=== PATIENT | male | born 1955 | race Caucasian/White ===

== ENCOUNTER → 2019-03-14 | Outpatient (CLI) | payer BC, SELFPAY ==
[2019-03-14 13:30] LABS: PSA,Total - Annual Screen 1.85 ng/mL (0.00-4.00)
== END | disposition home or self-care (01) ==
LOC: MFPLAB 11:53
PROVIDERS: Family Provider Family Medicine; PCP Family Medicine; Referring Provider Family Medicine; Visit Provider Family Medicine
DX: Z12.5 Encounter for screening for malignant neoplasm of prostate (principal)
CPT/HCPCS: 36415; 84153; G0103

== ENCOUNTER 2020-10-16 07:19 | Emergency (ER) | payer BC, SELFPAY ==
[2020-10-16 07:20] VITALS: BP 185/102; PULSE 75; RESP 16; TEMP 36.2; O2SAT 97; BMI 31.9
--- NOTE | 2020-10-16 07:59 | CT_ITS ---
STUDY: CT BRAIN WITHOUT CONTRAST REASON FOR EXAM: Male, 65 years old. Fell yesterday, no LOC, abrasion to back of head. RADIATION DOSAGE (If Supplied By Facility): CTDIvol = ( 44.99 ) mGy, DLP = ( 745.49 ) mGycm TECHNIQUE: Transaxial CT imaging of the brain was performed without administration of intravenous contrast material. Individualized dose optimization techniques were used for this CT. COMPARISON: No relevant priors. FINDINGS: Small laceration and scalp hematoma overlying the posterior left parietal bone. Normal calvarium. Normal size ventricles and extra-axial spaces for the patient''s age. Normal white matter tracts of the cerebral hemispheres. Normal basal ganglia and thalami. Normal brainstem. Normal cerebellum. There is no intracranial hemorrhage. There are no findings of an acute ischemic infarction. There is a 1.2 cm polyp or retention cyst along the anterior medial portion of the right maxillary sinus. Partial opacification of the ethmoid sinuses. CT/Brain/Head without Contrast IMPRESSION: No acute abnormality is seen. Sinusitis. Electronically Signed: Mynor Marsh MD at 8:30 EST , Service support ,
--- NOTE | 2020-10-16 10:25 | ED.DCSUM_ITS ---
History of Present Illness Chief Complaint: Fall Informant: Patient Onset: Yesterday Current Severity: Mild Maximum Severity: Mild Narrative: Patient present secondary to head injury. He states he fell yesterday after ge tting off work and injured the back of his head. No loss of consciousness. Patient states he cannot see the wound and is not sure if it needs repair. He is also not sure of his last tetanus update. Patient does have mild headache. No vision changes, nausea, vomiting. Patient is not on anticoagulants. Past Medical History - Allergies and Home Meds Allergies/Adverse Reactions: Allergies No Known Allergies Allergy (Verified 10/16/20 07:20) Primary Care Physician: Francisco Crawley MD [Primary Care Provider] - 7 Days for suture removal Prior records reviewed: Yes Past Medical History: - - Noncontributory Review of Systems General: Denies: Chills, Fever Eyes: Denies: Visual changes - bilaterally ENT: Denies: Bilateral ear pain Cardiovascular: Denies: Chest pain Respiratory: Denies: Dyspnea, Cough Gastrointestinal: Denies: Abdominal pain, Vomiting, Diarrhea Genitourinary: Denies: Dysuria Musculoskeletal: Denies: Swelling, Extremity Pain Skin: Reports: Wounds Neurological: Denies: Headache, Weakness, Parasthesia Hematologic: Denies: Easy bruising, Easy bleeding Allergy: Denies: Uticaria Physical Exam Vital Signs/Narrative: Vital Signs Temp Pulse Resp BP Pulse Ox 10/16/20 07:20 97.2 F L 75 16 185/102 H 97 Inital Vital Signs reviewed: Yes General: Well nourished, Well developed Head: Normocephalic, Trauma - 2 cm curved abrasion with dried blood to the left posterior parietal scalp. Eyes: Perrl, EOMI ENT: Moist mucous membranes Neck: - - No C-spine tenderness. Cardiovascular: Regular rate, Regular rhythm Respiratory: No distress, CTA bilaterally Abdomen: Soft, Nontender Extremities: Nontender Skin: - - Scalp wound as above Neurological: Alert, Oriented x3, Normal Strength, Normal Sensation Psychological: Normal affect Diagnostic/Tx/Re-eval Impressions Brain CT 10/16/20 07:59 IMPRESSION: No acute abnormality is seen. Sinusitis. Electronically Signed: Mynor Marsh MD at 8:30 EST , Service support , 10/16/20 07:59 CT Head [Brain/Head without Contrast] [CT] Stat - Medical Decision Making Tetanus update is provided. CT scan of the head is obtained with no intracranial injuries, soft tissue swelling noted. After cleansing wound was noted that repair was needed. Please see procedure note. Procedures - Lacerations No standard instances Length: 0.79 in Depth: Sub Q Laceration repair: Lidocaine with epi, Local Number of Sutures/Jeison: 2 Comment: After wound was cleansed at bedside it was noted to be full-thickness. 3 cc of 2% lidocaine with epinephrine were infused. Wound is cleansed and irrigated. 3 jeison were placed across the wound. ED Disposition - Plan for ED Patient: Disposition: Home or Assisted Living Diagnosis: Scalp laceration Instructions: ED Laceration: All Closures Referrals: Francisco Crawley MD [Primary Care Provider] - 7 Days for suture removal
[2020-10-16] MEDS: Diphth,Pertuss(Acell),Tet Vac 0.5 ML Vial IM (10:27)
[2020-10-16] MEDS: Lidocaine 2% /Epi 1:100 (50ml) 50 ML Vial INFILT (11:04)
[2020-10-16 11:05] VITALS: PULSE 74; RESP 22; O2SAT 97
== END 2020-10-16 11:34 | disposition home or self-care (01) ==
PROVIDERS: Emergency Provider Emergency Medicine; PCP Family Medicine
DX: S01.01XA Laceration without foreign body of scalp, initial encounter (principal); W19.XXXA Unspecified fall, initial encounter; Y93.9 Activity, unspecified; Y92.9 Unspecified place or not applicable
CPT/HCPCS: 12001; 70450; 90471; 90715; 99283

== ENCOUNTER 2021-03-21 07:34 | Day surgery (SDC) | payer BC, SELFPAY ==
--- NOTE | 2021-03-18 14:10 | EKG12_ITS ---
Test Reason : PREOP Blood Pressure : / mmHG Vent. Rate : 050 BPM Atrial Rate : 050 BPM P-R Int : 164 ms QRS Dur : 082 ms QT Int : 478 ms P-R-T Axes : 017 -09 -08 degrees QTc Int : 435 ms Sinus bradycardia with sinus arrhythmia Nonspecific T wave abnormality Abnormal ECG Confirmed by MARVIN HELM, SATNAM ([id number]), graphic editor LORENZO TRINIDAD ([id number]) on 03/19/2021 12:45:50 PM Referred By: Titus Agarwal Confirmed By:SATNAM WONG MD
[2021-03-18 14:47] LABS: Hematocrit 39.5 % (40-54); Mean Corp Hgb Conc 35.4 g/dL (32-36); Mean Corpuscular Hgb 31.5 pg (27.0-32.0); Mean Platelet Vol. 10.6 fl (6.2-12.0); Platelet Count 201 K/mm3 (150-450); RBC Distribution Width CV 12.9 % (11.6-14.6); RBC Distribution Width SD 42.1 fl (35.1-43.9); Red Blood Count 4.44 M/mm3 (4.6-6.2); White Blood Count 7.1 K/mm3 (4.4-11.0)
[2021-03-21] VITALS (9 sets, daily range): BP systolic 160–195; BP diastolic 82–95; PULSE 47–60; RESP 16–18; TEMP 36.1–36.7; O2SAT 50–99; BMI 29.6
[2021-03-21] MEDS: Lactated Ringers 1,000 ML 100 ML IV (08:45)
--- NOTE | 2021-03-21 09:04 | PCM.HP.BLA ---
History and Physical Date of Admission: 03/21/21 HISTORY AND PHYSICAL ? Adam Ochoa Jr. 1955 ? ? REFERRING PHYSICIAN: Mitul Sparks MD ? CHIEF COMPLAINT: Consult (Left Inguinal Hernia) ? HPI: Adam is a 65 year old male with a complaint of a bulge and discomfort in his left inguinal region. The patient notes discomfort in this area with lifting and straining. The symptoms have increased, over the past few months. ? The patient notes no symptoms of bowel obstruction and denies nausea or vomiting. The patient was seen by his primary care physician who felt the patient has a hernia. Adam was referred for evaluation and treatment. ? The patient is being seen by me today at the request of Dr. Sparks for my opinion and advice regarding Left inguinal hernia (primary encounter diagnosis). ? ? PAST MEDICAL HISTORY PAST MEDICAL HISTORY Diagnosis Date ? Appendicitis, acute 07/07/2010 ? Rotator cuff syndrome of shoulder and allied disorders ? ? ? PAST SURGICAL HISTORY PAST SURGICAL HISTORY Procedure Laterality Date ? APPENDECTOMY,RUPT APPENDX+ABSCESS ? 07/07/2010 ? TONSILLECTOMY HX ? CURRENT MEDICATIONS Current Outpatient Medications Medication Sig ? meloxicam (MOBIC) 15 mg tablet Take 15 mg by mouth once daily. ? No current facility-administered medications for this visit. ? ? ALLERGIES: Patient has no known allergies. ? PERSONAL HISTORY: SOCIAL HISTORY Social History ? Tobacco Use ? Smoking status: Former Smoker ? Smokeless tobacco: Never Used ? Tobacco comment: QUIT 3 WEEKS AGO Substance Use Topics ? Alcohol use: Not on file ? Drug use: Not on file ? FAMILY HISTORY: FAMILY HISTORY FAMILY HISTORY Problem Relation Age of Onset ? Cancer Father ? ? Diabetes Maternal Grandmother ? ? Heart Maternal Grandfather ? ? Stroke Maternal Grandfather ? ? ? REVIEW OF SYMPTOMS: The review of systems data was entered by the nurse and reviewed by me ? Nursing Notes: Delilah Henderson LPN 02/24/2021 4:09 PM Signed REVIEW OF SYSTEMS: General: The patient NOTES fatigue, denies weight loss, denies weight gain, denies feeling hot, and denies feelings of cold. Eyes: The patient denies glaucoma, denies eye injury/surgery, wears glasses or contacts. Ear/Nose/Throat: The patient denies allergies, denies hayfever, denies ear infections, and denies bloody noses. Cardiovascular: The patient denies chest pain, denies heart disease, denies high blood pressure,denies cardiac stent, denies prior heart attack, denies irregular heart beat, denies high cholesterol, denies poor circulation, denies heart failure, other cardiac issues, denies claudication, denies cold feet, denies peripheral arterial stent. Respiratory: The patient denies tuberculosis, denies pneumonia, denies frequent cough, denies pulmonary embolism, denies shortness of breath, and denies coughing up blood. Gastrointestinal: The patient denies difficulty swallowing, denies acid reflux, denies ulcers, denies vomiting, denies jaundice/hepatitis, denies gallbladder problems, denies black or tarry stools, NOTES hemorrhoids, denies bleeding from rectum, denies diverticulitis, denies constipation, denies diarrhea, denies loss of stool control, and NOTES hernias. Kidney/Bladder: The patient denies kidney stones, denies urine infections, and denies bloody urine. Skin: The patient denies a history of skin cancer, denies bleeding/changing moles, and denies a history of skin rash. Neurologic: The patient denies a history of epilepsy/convulsions, denies headaches, denies head/spinal injuries, and denies stroke/TIA. Psychiatric: The patient denies psychiatric medications, NOTES depression, and denies voices, denies substance abuse. Endocrine: The patient denies thyroid disorders, denies diabetes, and denies hormonal problems. Hematologic: The patient denies a history of bruising, denies bleeding, and denies anemia, denies blood clots. Infections: The patient NOTES a history of measles and mumps, denies rheumatic fever, and denies sexually transmitted diseases. Musculoskeletal: The patient NOTES back pain/injury, NOTES back problems, denies sciatica, NOTES knee/foot trouble, denies arthritis, or denies gout. ? ? When was patient's last Mammogram screening? N/A ? Last Colonoscopy: None ? Delilah Henderson LPN ? PHYSICAL EXAMINATION: ? General: The patient is 65 year old male, well nourished, well hydrated in no acute distress. The patient is oriented to time, place, and person. ? VITALS: Blood pressure 132/78, pulse 89, temperature 36.7 ?C (98 ?F), height 172.7 cm (5' 8), weight 88 kg (194 lb), SpO2 96 %. Body mass index is 29.5 kg/m?. ? HEENT: Normal cephalic, ataumatic, pupils are equally round, sclera are anicteric, mucous membranes are moist, oropharynx is clear. Neck has no masses, asymmetry or lymphadenopathy. Thyroid is unremarkable. ? Respiratory: Clear to auscultation and percussion. Normal respiratory excursion and pattern. ? Cardiac: Examination is regular rate and rhythm. ? Abdominal exam: Soft, nontender, with no palpable masses. No hepatosplenomegaly. A moderate reducible left inguinal hernia, no right inguinal or umbilical hernias are noted ? Rectal exam: exam deferred ? Extremities: no clubbing, cyanosis or edema. No adenopathy. ? Other: ? ? LABORATORY VALUES: As Noted ? RADIOLOGIC STUDIES: As Noted ? Assessment IMPRESSION: left inguinal hernia ? PLAN: My plan is to perform a robotic assisted laparoscopic left inguinal hernia repair with mesh. The planned surgical procedure was discussed extensively with the patient. The risks, benefits, anticipated outcomes and possible complications were mentioned. Adam ramirezands that all hernia repair surgery has a chance of recurrence and/or chronic post operative pain. My staff has also explained the procedure in understandable terms and the patient was given the option to take printed material concerning the planned procedure. The patient had the opportunity to ask questions concerning the planned procedure. The patient freely consents to the planned procedure. ? A letter was sent to Francisco Crawley DO indicating the above finding for this patient. ? Diagnoses: (K40.90) Left inguinal hernia (primary encounter diagnosis) ? Anticipated CPT Code: laparoscopic left inguinal hernia repair with mesh - 27902-122 ? Anticipated Anesthetic: General ? Patient weight: Blood pressure 132/78, pulse 89, temperature 36.7 ?C (98 ?F), height 172.7 cm (5' 8), weight 88 kg (194 lb), SpO2 96 %. BMI: Body mass index is 29.5 kg/m?. ? Planned antibiotic: Ancef 2gm IVPB complex commercial litigation paralegal to OR ? SCDs needed - Yes Return to Clinic: The patient is instructed to follow-up with me 1 week post operatively. ? COVID (Procedure Consent) Procedure Criteria ? Procedure Criteria: Yes Elective The surgeon/proceduralist and patient have discussed in detail the risk of exposure to and/or potential harm posed by the COVID-19 virus with having a surgery/procedure at this time versus the risk of? delaying the surgery/procedure. It is not possible to know either the risk of delaying the surgery or procedure or chance of getting an infection with perfect accuracy, but a joint decision was made between the patient and the surgeon/proceduralist ?to proceed at this time with the scheduled surgery/procedure as indicated on the consent form. ? ? Titus Agarwal III, MD I have re-examined the patient. There are no clinical changes since date of exam.
[2021-03-21] MEDS: Cefazolin 2 GM in 0.9% Normal Saline 100 ML IV (09:39)
[2021-03-21] MEDS: Bupivacaine Mpf 0.5% 30 ML VIAL (10:13)
--- NOTE | 2021-03-21 11:16 | PCM.OPRPT ---
Problems Associated Problem List Diagnoses (1) Left inguinal hernia: Report of Operation Date of Procedure: 03/21/21 Pre-Operative Diagnosis: Left inguinal hernia Post-Operative Diagnosis: The same Surgery/Procedure Performed:: Robotic assisted laparoscopic left inguinal hernia repair with mesh Surgeon: Titus Agarwal brick machine operator: Marc Luke Type of Anesthesia: General Anesthesiologist: Mitul Lamar Estimated Blood Loss (mL): < 25 cc Description of Procedure: Patient was brought into the operating room. Placed in supine position. Under excellent general endotracheal ovation a Mccormick catheter was placed abdomen was sterilely prepped and draped in usual fashion. Local was injected supraumbilically dissection was carried down. Fascia was grasped with a [employer] varies needle was placed inside the abdomen, the abdomen and insufflated the abdomen to 15 torr. I placed a #8 trocar through this defect it was flank by 2 other #8 trochars. Patient was placed in the headdown position robot was brought in. Robot was successfully docked I placed a prograsp in my left hand scissors in my right hand I scored the peritoneum on the left side dissecting down to we came to the pubic tubercle and dissected laterally immediately coming in direct contact with a direct inguinal hernia which I brought back into the operative field I dissected further laterally no indirect hernia was identified. Once I had the cord and vessel structures dissected free I placed a 10 x 15 cm progrip mesh into the wound laid it over the defect it covered it quite nicely. I then reperitonealized the area using a 3 OV lock suture covering the mesh completely. Right side look good without signs of herniation. Trochars were removed. Wounds were brought together with deep dermal stitches of 3-0 Vicryl and then interrupted 4-0 Monocryl. Steri-Strips were applied sterile dressings were applied and the patient tolerated the procedure well Grafts/Implants Used: Continue progrip mesh reference number [id number], lot number [id number] Admit VTE Documentation VTE Present on Admission: No VTE Mechan Device Prophylaxis: SCD's VTE Pharm Prophylaxis ordered?: No Reason prophylaxis not ordered:: Treatment Not Indicated
--- NOTE | 2021-03-21 11:45 | DCINST_ITS ---
Discharge Instructions Procedure Hernia Diet Discharge Diet: Light diet - advance as tolerated Activity Discharge Activity: Return to Normal Activity, May Drive (when you are no longer taking narcotic pain medications.) and May Shower (with the bandage in place 1-2 days after surgery.) Lifting Restrictions: 20 pounds for 8 weeks. Additional Activity Instructions:: Climbing stairs is fine, walking is e ncouraged. Sitting in bed may be uncomfortable. Sitting up using your lateral muscles (sitting up sideways) is usually more comfortable. Do not drive, work heavy equipment of sign legal documents for 24 hours. If your hernia repair was an ingunial repair, you may have scrotal swelling, an ice pack and/or athletic support can provide more comfort. Pain medications may cause nausea, you should typically eat light foods as you take your pain medications. Pain medications may also cause constipation. If you have difficulty with this, discuss with your doctor. Dressing / Incision Call your doctor if your incision/area has: Continuous Slow Oozing, Sudden Increased Bleeding, Increased Pain/ Swelling, Increased Redness and Foul Smelling Discharge Call your doctor if you observe: Fever of 101 or Higher Suture Line Care: Avoid Pulling/Pushing and Avoid Pinching/Bending Additional Dressing/Incision Instructions:: Leave the operative bandage on for 2-3 days. When you remove the bandage, leave the steri-strips on place until your follow up appointment or they fall off. Follow Up Care Please Follow Up With: Ashley Degroot PA-C When: Call office to schedule an appointment to be seen in 7 days. Test Results: Test results from this visit will be discussed in further detail at your follow-up appointment, if applicable. Discharge Plan Admission Attending Provider: Titus Agarwal Primary Care Provider: Francisco Crawley Discharge Orders/Prescriptions Prescriptions: New oxycodone-acetaminophen [Percocet] 5-325 mg tablet 1 tab PO Q6H PRN (Reason: pain) 5 Days Qty: 20 RF: 0 Other Ambulatory Orders: 12 Lead EKG (Routine) Timeframe: [id number] Location: None Selected Ordered By: Dr. Bj Brown Referrals / Follow Up: Francisco Crawley MD [Primary Care Provider] - Disposition Disposition (needs filled in before D/C Order can be placed): Home, Self Care
[2021-03-21] MEDS: Acetaminophen 325 MG Tablet PO (13:06)
[2021-03-21] MEDS: oxyCODONE 5 MG Tablet PO (13:06)
== END 2021-03-21 13:49 | disposition home or self-care (01) ==
LOC: SDC 07:40 → AC 07:41
PROVIDERS: Anesthesiology; PCP Family Medicine; Referring Provider Surgery; Visit Provider Surgery
PROC: 0YQ64ZZ Repair Left Inguinal Region, Percutaneous Endoscopic Approach (ICD-10-PCS; CPT 49650; principal; 2021-03-21 09:30)
DX: K40.90 Unilateral inguinal hernia, without obstruction or gangrene, not specified as recurrent (principal); Z87.891 Personal history of nicotine dependence
CPT/HCPCS: 00840; 49650; S2900; 36415; 85027; 93005; J7120; J2405

== ENCOUNTER → 2022-02-20 | Outpatient (CLI) | payer MEDICARE, OTHER, SELFPAY ==
--- NOTE | 2022-02-20 11:16 | RAD_ITS ---
STUDY: X-RAY - RIGHT FOOT CLINICAL: Male, 66 years old. Cellulitis. TECHNIQUE: 3 view(s) of the foot. COMPARISON: None. FINDINGS: Osteopenia. 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 Inferior calcaneal spur. Mild arthrosis of the tarsometatarsal articulations. Mild arthrosis of the MTP and IP joints with hammertoe deformities. The soft tissue structures are unremarkable. RAD/Foot min 3 Views IMPRESSION: Osteopenia with diffuse osteoarthritic changes. Inferior calcaneal spur. No acute abnormality, evidence of erosive changes or fusion. Electronically Signed: Mervin Townsend MD at 13:18 EDT ,
== END | disposition home or self-care (01) ==
LOC: MTRAD 11:14
PROVIDERS: PCP Family Medicine; Referring Provider Family Medicine; Visit Provider Family Medicine
DX: L03.90 Cellulitis, unspecified (principal)
CPT/HCPCS: 73630

== ENCOUNTER 2025-04-01 11:13 | Emergency (ER) | payer MEDICARE, OTHER, SELFPAY ==
[2025-04-01 11:15] VITALS: BP 155/89; PULSE 67; RESP 18; TEMP 37; O2SAT 99; BMI 35.4
--- NOTE | 2025-04-01 11:27 | EDS_ITS ---
<Statement entered by Dereje Núñez DO - 04/01/25 16:06> Patient was seen and examined with physician mortgage loan assistant Nancy All components of the history and physical confirmed and agreed. History of present illness and physical exam: Patient is a 61-year-old male with past medical history of alcohol use, anxiety, depression who presented to the emergency department with a chief complaint of fall. He states that around the 10 PM last night he was carrying a chair outside slipped on wet grass on an incline in his yard. He states that he is not sure exactly how he landed but notes that when he got up this morning he had left ankle pain and he was complaining of right shoulder pain as well. He states that he had been doing a significant yard work recently as well and st ates that he could have hurt his shoulder from doing this. He states he did not hit his head did not pass out he remembers entire event and denies any blood thinning medications. Review of systems: Agreed above Physical exam: Agree with above MDM Patient is a 69-year-old male who presented to the emergency department with a chief complaint of left ankle pain and right shoulder pain after a fall. On the differential diagnosis includes but not limited to proximal humerus fracture, medial malleolus fracture, lateral malleolus fracture, rotator cuff tear. Once the workup is obtained reviewed he will be reevaluated. Patient's x-ray of his ankle and shoulder reviewed by myself and by radiology showed no acute fractures or dislocations of either joint. Did discuss results with the patient he would like to go home at this point time. He is vies to ice, rotate Tylenol and ibuprofen [id number]. Patient was offered a sling for comfort and he states that he does not want this. He is advised to follow-up orthopedics in the outpatient setting and return with worsening symptoms or concerns. All question concerns answered he is discharged home in stable condition. Final impression: Right shoulder pain Left ankle pain Fall History of anxiety and depression Disposition: Patient will be discharged home in stable condition Supervising attending attestation: Dereje Núñez D.O. [facility] History of Present Illness Chief Complaint: Lower Extremity Injury Narrative Narrative: 69-year-old male presents with extremity injuries. Last night around 10 PM he was carrying a chair outside and slipped on an incline in his yard. He is not sure how he landed but he developed pain in his left ankle. He denies hitting his head or LOC. He went to bed and when he woke up this morning his left ankle was swollen but he can still ambulate. He states his right shoulder feels p ainful when ranging above 90 degrees but he is not sure if this is from the yard work yesterday or the fall. He denies weakness or numbness or tingling. He is right-hand dominant. He is not on blood thinners. PFSH PFS Medical History Abdominal muscle strain Alcohol use Anxiety Contusion of rib on right side Depression Gastric reflux Leg cramps Loose, teeth Smoker Wears glasses Home Medications ?Medication ?Instructions ?Recorded ?Last Taken ?Type ibuprofen 200 mg capsule 200 mg PO Q6H PRN 06/10/23 U nknown History Allergy/AdvReac Type Severity Reaction Status Date / Time tuna oil Allergy PT UNSURE Verified 04/01/25 11:43 OF REACTION Surgical History History of appendectomy History of tonsillectomy and adenoidectomy Social History Smoking Status: Current every day smoker tobacco type: cigarettes ROS ROS ED ROS Narrative Constitutional: Negative for fever, chills, malaise. CVS: Negative for chest pain. Respiratory: Negative for shortness of breath. Musc: Positive for right shoulder pain, left ankle pain, trauma. EXAM Physical Exam Narrative Exam Narrative: CONST: Patient sitting in no acute distress. EYES: Normal inspection. HEAD: Normocephalic atraumatic. NECK: Normal inspection. No midline spinal tenderness, no step off or crepitus. RESP: No respiratory distress, CTAB. Chest wall nontender. CVS: Regular rate and rhythm, no murmur, no gallop. ABD: Soft and nontender, no guarding or rebound, nondistended. Back: Normal inspection, no midline tenderness. SKIN: Color normal, no rash, warm, dry, intact. EXTREMITIES: Normal appearance without gross trauma or deformity. Right shoulder range of motion is limited to 90 degrees secondary to pain but there is no reproducible tenderness to palpation. Otherwise he has full range of motion of the upper extremities, no bony tenderness, 2+ radial pulses. Lower extremities look symmetric, full range of motion, left lateral ankle swelling without tenderness, no foot tenderness, 2+ DP pulses. NEURO: Alert and answering questions appropriately. PSYCH: Normal affect. Const Vital Signs: 04/01/25 11:15 Temperature 98.6 F Temperature Source Oral Pulse Rate 67 Respiratory Rate 18 Blood Pressure 155/89 H Blood Pressure Mean 111 Pulse Ox 99 Oxygen Delivery Method Room Air MDM MDM MDM Narrative Medical decision making narrative: Differential: Shoulder and ankle contusion/strain versus fracture 61-year-old male with mechanical fall last night and now has right shoulder pain and left ankle swelling without significant pain. He denies head injury or LOC. He is awake alert no distress. Vital stable. He has pain with movement of the right shoulder but no external signs of injury or deformity. He also has left lateral ankle swelling without tenderness and all extremities are neurovascularly intact. X-rays are negative. He declined a sling or ankle stirrup and is comfortable icing, elevating, taking [id number] pain meds as needed. I provided orthopedic follow-up if symptoms do not improve and he was discharged in stable condition. Radiography Diagnostic Testing: Clinical Impression(s) from Imaging Studies Ankle X-Ray 04/01/25 11:50 IMPRESSION: DEGENERATIVE OSTEOARTHROSIS. NO ACUTE FINDINGS. Reading Location: [facility] Shoulder X-Ray 04/01/25 11:50 IMPRESSION: DEGENERATIVE OSTEOARTHROSIS. NO ACUTE FINDINGS. Reading Location: [facility] ED attending interpretation of right shoulder shows no fracture or dislocation. ED attending interpretation of left ankle shows no fracture or dislocation. Discharge Plan Triage Chief Complaint: Lower Extremity Injury Other Complaint: Upper Extremity Injury ED Midlevel Provider: Nancy Lincoln ED Provider: Dereje Núñez Dx/Rx/DC Orders Clinical Impression: Fall, Acute pain of right shoulder, Left ankle sprain Instructions: Medicine for Pain, ED Ankle Sprain (Adult) Prescriptions: No Action ibuprofen 200 mg capsule 200 mg PO Q6H PRN Primary Care Provider: Francisco De La Paz Referrals: Francisco De La Paz MD [Primary Care Provider] - Jasen Parker DO [Med Staff - Active Staff] - Activity Restrictions/Additional Instructions: The x-ray showed no broken bones. Ice and 20-minute sessions throughout the day and take Tylenol or ibuprofen as needed every 6 hours. If it is not improving I recommend you follow-up with a primary care or orthopedic doctor. Print Language: Estonian Disposition Disposition: Home, Self Care
--- NOTE | 2025-04-01 11:50 | RAD_ITS ---
PROCEDURE: ANKLE MIN 3 VIEWS 04/01/2025 REASON FOR EXAM: PAIN TECHNIQUE: ANKLE MIN 3 VIEWS COMPARISON: None. FINDINGS: Bones: No acute fracture. No aggressive osseous lesions. Joints: Normal alignment. Mild degenerative changes. Soft tissues: Soft tissues are unremarkable. RAD/Ankle min 3 Views IMPRESSION: DEGENERATIVE OSTEOARTHROSIS. NO ACUTE FINDINGS. Reading Location: [id number]
--- NOTE | 2025-04-01 11:50 | RAD_ITS ---
PROCEDURE: SHOULDER MIN 2 VIEWS 04/01/2025 REASON FOR EXAM: PAIN TECHNIQUE: SHOULDER MIN 2 VIEWS COMPARISON: None. FINDINGS: Bones: No acute fracture. No aggressive osseous lesions. Joints: Normal alignment. Mild degenerative changes of the glenohumeral and acromioclavicular joints. Soft tissues: Soft tissues are unremarkable. RAD/Shoulder min 2 Views IMPRESSION: DEGENERATIVE OSTEOARTHROSIS. NO ACUTE FINDINGS. Reading Location: [id number]
--- OUTSIDE RECORDS SUMMARY | 2025-04-01 12:19 | XMS RPT_ITS | CCD ---
Author Organization [facility] Care Team Providers Care Breast Surgeon Name Role Phone Francisco Crawley DO Primary Care Provider Medications Current Medications Medication Drug Class(es) Dates Sig (Normalized) Sig (Original) acetaminophen 325 mg / oxyCODONE hydrochloride 5 mg oral tablet (1 source) Opioid Agonist Start: 03-21-2021 take 1 tablet by mouth every six hours Oxycodone-Acetami nophen (Percocet) 5-325 mg tablet Active 1 TABLET PO EVERY 6 HOURS 16 01March 21, 2021 Completed/Discontinued Medications Medication Drug Class(es) Dates Sig (Normalized) Sig (Original) meloxicam 15 mg oral tablet (1 source) Nonsteroidal Anti-inflammatory Drug Start: 02-18-2021 End: 04-08-2021 take 1 tablet by mouth once daily meloxicam (MOBIC) 15 mg tablet Take 15 mg by mouth once daily. 0 02/18/2021 04/08/2021 Discontinued Comment on above: Take 15 mg by mouth once daily. Problems Active Problems Problem Classification Problem Date Documented Da te Episodic/Chronic Abdominal hernia (1 source) Left inguinal hernia ; Translations: [Unilateral inguinal hernia, without obstruction or gangrene, not specified as recurrent] Episodic Open wounds of head; neck; and trunk (1 source) Scalp laceration; Translations: [Laceration without foreign body of scalp, initial encounter] Episodic Sprains and strains (1 source) Strain of abdominal muscle; Translations: [Strain of muscle, fascia and tendon of abdomen, initial encounter] Episodic Superficial injury; contusion (1 source) Contusion of rib; Translations: [Contusion of right front wall of thorax, initial encounter] Episodic Past or Other Problems Problem Classification Problem Date Documented Da te Episodic/Chronic Appendicitis and other appendiceal conditions (1 source) Acute appendicitis with generalized peritonitis; Translations: [Acute appendicitis with generalized peritonitis, without abscess] Onset: 06-24-2010 06-24-2010 Episodic Results Test Name Value Interpretation Reference Range Facility Foot min 3 Viewson 2 Foot min 3 Views [facility] Imaging Services [address] [place] [address] Foot min 3 Views MR#: [id number] Acct: [id number] Name: LATRICIA FAYE Jr. Rep #: [id number] : 1955 M 66 From: Mervin Townsend MD PCP: Dr. Francisco De La Paz MD Status: REG CLI Study: Foot min 3 Views Date of Exam: 02/20/22 Exam# [id number] Ordering Dr: Francisco De La Paz MD STUDY: X-RAY - RIGHT FOOT CLINICAL: Male, 66 years old. Cellulitis. TECHNIQUE: 3 view(s) of the foot. COMPARISON: None. FINDINGS: Osteopenia. 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 Inferior calcaneal spur. Mild arthrosis of the tarsometatarsal articulations. Mild arthrosis of the MTP and IP joints with hammertoe deformities. The soft tissue structures are unremarkable. RAD/Foot min 3 Views IMPRESSION: Osteopenia with diffuse osteoarthritic changes. Inferior calcaneal spur. No acute abnormality, evidence of erosive changes or fusion. Electronically Signed: Mervin Townsend MD at 13:18 EDT , CC: Dr. Francisco De La Paz MD Package Delivery Room Service Runner: Signed [facility] CNOVon 07-25-2021 CNOV Office Visit (UROLWS ) LATRICIA FAYE JR. ([id number]) 1955 M Date Time Provider Department 07/25/21 8:00 AM RAKAN ULLOA During your visit today, we recorded the following information about you: Temperature Pulse Blood pressure Weight 98.5 degrees 68/minute 124/84 92.1 kg Rakan Ulloa PA-C 07/25/2021 8:47 AM Signed PATIENT INFO: Latricia Faye Jr. 65 year old ( ) REFERRING PROVIDER: Lorenzo Degroot PCP: Francisco Crawley DO HPI: Latricia Faye Jr. 65 year old male is here today for 3 month follow up for his urgency and frequency concerns He feels he has improved some from the Hernia surgery, he has not made any of the changes we discussed and continues to not unable to hold the urine once he has the urge to go its difficult . And still does not drink water as a general rule and does drink a lot of coffee and the urine is very dark and smells strong LUTS: Obstructive - post-void dribbling: yes incomplete emptying: yes Irritative - NTF yes Urgency yes Frequency yes Other symptoms: ED - Denies LABS: No results found for: TESTOST No results found for: TESTFREE PSA (ng/mL) Date Value 04/22/2021 2.55 No results found for: HCT MEDICATIONS: ibuprofen (MOTRIN) 200 mg tablet Take 200 mg by mouth every 6 hours as needed for pain. PAST MEDICAL HISTORY: PAST MEDICAL HISTORY Diagnosis Date - Appendicitis, acute 07/07/2010 - Inguinal hernia 02/2021 Left Inguinal Hernia - Rotator cuff syndrome of shoulder and allied disorders PAST SURGICAL HISTORY: PAST SURGICAL HISTORY Procedure Laterality Date - APPENDECTOMY,RUPT APPENDX+ABSCESS 07/07/2010 - LAP REPAIR INTIAL INGUINAL HERNIA Left 03/21/2021 - TONSILLECTOMY HX FAMILY HISTORY: FAMILY HISTORY Problem Relation Age of Onset - Cancer Father - Diabetes Maternal Grandmother - Heart Maternal Grandfather - Stroke Maternal Grandfather SOCIAL HISTORY: Social Connections: Not on file REVIEW OF SYSTEMS: GENERAL: No fever, chills, weight loss, or fatigue. = PHYSICAL EXAMINATION: Blood pressure 124/84, pulse 68, temperature 36.9 ?C (98.5 ?F), weight 92.1 kg (203 lb), SpO2 99 %. GENERAL: WNL nutrition, no deformities, healthy appearing PROBLEM LIST REVIEW: LABS: Results for orders placed or performed in visit on 07/25/21 UA DIP, URINE (POC) Result Value Ref Range GLUCOSE UA (POCT) Negative Negative mg/dL BILIRUBIN UA (POCT) Negative Negative KETONE UA (POCT) Negative Negative mg/dL SPECIFIC GRAVITY UA (POCT) 1.025 1.005 - 1.030 HEMOGLOBIN/BLOOD UA (POCT) Negative Negative PH UA (POCT) 7.0 4.5 - 8.0 PROTEIN UA (POCT) Negative Negative mg/dL UROBILINOGEN UA (POCT) 0.2 Normal E.U./dL NITRITE UA (POCT) Negative Negative LEUKOCYTES UA (POCT) Negative Negative COLOR UA (POCT) Dark yellow CLARITY UA (POCT) Clear PROCEDURES: Bladder Scan: 0 ml IMAGING: IMPRESSION/PLAN: 1. OAB (overactive bladder) > Increase hydration .and reduce irrtants > Patient states not interested in hydration too concern about having an accident with urine > Follow up as needed VERO Jean-Baptiste, [place], PA-C Referring Provider: SELF [200] Allergies As of Date: 07/25/2021 (No Known Allergies) Date Reviewed: 07/25/2021 Reviewed by: Lashawn Levine Ma - Fully Assessed Reason for Visit: Follow Up [171] OAB [Other] LUTS [Other] Primary Visit Diagnosis:OAB (overactive bladder) [N32.81] Other Visit Diagnosis:Lower urinary tract symptoms (LUTS) [R39.9] Order(s):UA DIP, URINE (POC) [[id number]] Order #: [id number]. #:[id number] Prescriptions as of 07/25/2021 - ibuprofen (MOTRIN) 200 mg tablet Take 200 mg by mouth every 6 hours as needed for pain. Problem List As Of Date 07/25/2021 Noted Resolved Acute appendicitis with generalized peritonitis*06/24/2010 Encounter Status:Closed by RAKAN ULLOA on 07/25/21 Normal [facility] Ribs Uni Min 3V w/PA Cheston 07-17-2021 Ribs Uni Min 3V w/PA Chest [facility]iology [address] [place] [address] Ribs Uni Min 3V w/PA Chest MR#: [id number] Acct: [id number] Name: LATRICIA FAYE Jr. Rep #: [id number] : 1955 M 65 From: Mynor waite MD PCP: Dr. Francisco Crawley MD Status: DEP AMB Study: Ribs Uni Min 3V w/PA Chest Date of Exam: 07/17 Exam# [id number] Ordering Dr: Cristobal Burnett STUDY: X-RAY - UNILATERAL RIBS ( RIGHT ) WITH CHEST REASON FOR EXAM: Male, 65 years old. Injury TECHNIQUE - RIBS: 4 view(s) of the ribs. TECHNIQUE - CHEST: Single PA view of the chest. COMPARISON: None. FINDINGS - RIBS: Normal visualized ribs without a demonstrated fracture. FINDINGS - CHEST: The lungs are clear and expanded. There is no demonstrated pleural abnormality. Normal size heart. Normal mediastinum and noelle. Normal visualized pulmonary arteries. There is atherosclerotic tortuosity of the aortic arch and descending thoracic aorta. There are diffuse degenerative changes of the visualized thoracic spine. Normal visualized ribs, clavicles, and shoulders. There is no demonstrated abnormality of the visualized soft tissue structures of the upper abdomen. RAD/Ribs Uni Min 3V w/PA Chest IMPRESSION: RIBS: Normal x-ray examination of the ribs. CHEST: Normal x-ray examination of the chest. Electronically Signed: Mynor Marsh MD at 8:26 EST , Service support , CC: MICHEAL Burnett; Dr. Francisco Crawley MD Package Delivery Room Service Runner: Signed [facility] Urgent Care Visit Reporton 1 09-16-2020 Urgent Care Visit Report [facility] [address] [place] [address] OFFICE VISIT Date of Service: 07/17/21 MR#: [id number] Acct: [id number] Name: LATRICIA FAYE Jr. Rep #: [id number] : 1955 Provider: MICHEAL garcia Age/Sex: 65/M Location: [facility] Status: Signed Intake Vital Signs 07/17/21 06:50 Height 5 ft 8 in Weight: 195 lb BMI 29.6 BP 152/84 H Blood Pressure Location Lt brachial Position Sitting Respiration 14 Pulse 72 Pulse Source Auscultation Temp 98.6 F Temp Source Oral Intake Visit Reasons: R SIDE/RIB PAIN/[employer] Allergies No Known Allergies Allergy (Verified 03/21/21 08:01) [facility] Medical History (Updated 07/17/21 @ 07:03 by Cristobal BURTON, MICHEAL) Abdominal muscle strain Alcohol use Anxiety Contusion of rib on right side Depression Gastric reflux Leg cramps Loose, teeth Smoker Wears glasses Surgical History (Updated 03/14/21 @ 15:54 by Lulu Doran) History of appendectomy History of tonsillectomy and adenoidectomy Social History Smoking Status: Current every day smoker tobacco type: cigarettes HPI HPI Details: LATRICIA FAYE, is a 65 M who presents to the office today for initial evaluation status post anterior chest wall/upper abdominal injury occurring yesterday while at work patient so states. Patient notes while lifting approximately 40 to 50 pound bag above shoulder level and pulling down the product him in the front of the right anterior chest as well as right upper abdomen causing discomfort to the same with pain aggravated touch and with deep inspiration. No complaints of abdominal masses, tolerating food and fluids fine and no changes in bowel/bladder function he so states. He notes pain is aggravated touch to affected area as well as with flexion/extension at the waist. Alleviated minimally with rest. No mkkh-[id number]-slyimac products taken to assist with symptoms. No other associated symptoms and no other alleviating/aggravating factors. ROS Const Constitutional: No other (as above) Exam Const General: cooperative, healthy appearing, uncomfortable and no acute distress Nutritional Appearance: well nourished Orientation: alert, awake and oriented x3 HENMT Head: normal to inspection Ears: hearing grossly normal bilaterally and external ears normal Nose: external nose normal Face and sinus: normal facial exam and face symmetric Eyes General: appearance normal, both eyes and all related structures Neck Neck: normal visual inspection and full ROM Chest Chest palpation inspection: normal inspection of the chest and abnormal palpation of chest wall (Right anterior lower rib automatic bandsaw tender to palpation) Resp Effort Inspection: normal respiratory effort, able to speak in complete sentences and symmetric chest movement Auscultation: Bilateral: Clear to Auscultation Cardio Palpation: normal PMI Rate: regular rate Rhythm: regular rhythm Heart Sounds: S1 normal, S2 normal, no gallops, no murmurs and no rubs Pulses: radial pulses present GI Inspection: normal to inspection Palpation: soft, no hepatosplenomegaly, not firm, no guarding and tender in the RUQ (Minimal/tolerable); not in the LLQ, not in the RLQ, not in the LUQ and not at McBurney's point Skin General: no rashes or lesions noted Neuro General: patient alert, patient awake, patient oriented x3 and gait normal Cognition: normal cognition Speech: speech normal Gait: normal gait Motor: muscle tone normal throughout Sensory Exam: no sensory deficits noted Psych Appearance: grossly normal Mental Status: mental status grossly normal Mood: congruent mood Affect: normal affect Speech and Movement: speech and movement normal Attitude: cooperative Thought Process: normal Thought Content: normal Judgment: judgment good Coding Level of Care Code Off vis,new,level 4 Diagnoses Contusion of rib on right side S20.211A Abdominal muscle strain S39.011A Assessment and Plan Assessment and Plan (1) Contusion of rib on right side: Status: Acute (2) Abdominal muscle strain: Status: Acute Plan - Cristobal BURTON, PA: See work restrictions as noted on today's [employer] through/including 07/18/2021; no work restrictions effective 07/19/2021. Rest, [id number] ibuprofen/Tylenol as needed for symptomatic relief. Follow-up with the now clinic on 07/21/2021 for reassessment, sooner should symptoms worsen or any other concerns develop. Patient states acknowledging understanding all the above. This note was generated with MediaWorksation software. It may contain incorrect words, spelling, and punctuation that were not noted in checking the note before signing. Plan Details Other Orders: Orders: Ribs Uni Min 3V w/MICHEAL Chest Today R07.81 11 (more content not included)... [facility] CNOVon 04-24-2021 CNOV Office Visit (GENSWS ) LATRICIA FAYE JR. ([id number]) 1955 M Date Time Provider Department 04/24/21 11:00 AM LORENZO DEGROOT During your visit today, we recorded the following information about you: Temperature Pulse Blood pressure Weight 98.6 degrees 76/minute 127/78 90.7 kg Height 1.74 m Lorenzo Degroot PA-C 04/24/2021 11:34 AM Addendum -RTW 05/19/21 The following instructions are important for you related to your office visit today with the [facility] General Surgeons. INSTRUCTIONS FOLLOWING YOUR RECENT HERNIA SURGERY You should be returning to your regular diet, If you have having persistent issues with tolerating your diet, please contact our office It is not unusual to have incisional pain for the first 1-2 weeks following surgery. If this persists beyond 2 weeks, contact the office You may return to your regular activities. You may drive if you are no longer taking narcotic pain medication. Climbing stairs is fine. Walking in encouraged. Sitting up from bed may be uncomfortable. Sitting up using your lateral abdominal muscles (sitting up sideways) is usually more comfortable. You should perform no lifting greater than 20lbs for the next 6-7 weeks. Usually 8 weeks total from the date of surgery. It is not unusual to have loose stools following surgery. This is usually self limited and related to the antibiotics that were given during your surgical procedure. Fiber supplementation and yogurt with active cultures may help you return to regular bowel activity. If you note loose stools persisting for over 2 weeks, or significant cramping or loose bloody stools, contact the office immediately. Contact the office immediately if any of your incisions become increasingly tender, red or have drainage. Again, if you have any difficulties or concerns, contact our office immediately. If you note any additional difficulties, questions, or concerns, you should contact our office immediately @ [phone] and ask to be transferred to the General Surgery department. Lorenzo Degroot PA-C 04/25/2021 9:53 AM Signed FOLLOW UP VISIT - HERNIA NAME: Latricia Faye . CLINIC NO.: [id number] DATE OF SERVICE: 04/24/2021 : 1955 REFERRING PHYSICIAN: Francisco Crawley DO Latricia is a patient I am following with Dr. Agarwal for a left inguinal hernia. Dr. Agarwal performed a robotic-assisted laparoscopic left inguinal hernia repair with mesh on 03/21/21. The patient currently notes no major complaints. his appetite has been good. he denies fever, chills or abdominal pain. he does note some mild intermittent pain at his surgical site which is exacerbated with certain movements and sitting. he notes no bulges at the operative site. Patient presents for recheck and to discuss return to work. He notes he initially wanted to try to go back to work sooner with a lifting restriction, but has been told by his work there are no guarantees anyone else would be able to assist him with heavy lifting. VITALS: Blood pressure 127/78, pulse 76, temperature 37 ?C (98.6 ?F), height 174 cm (5' 8.5), weight 90.7 kg (200 lb), SpO2 96 %. General: patient is alert, cooperative, pleasant and in no acute distress On examination, the abdomen is benign. The incisions are healing well without signs of infection or inflammation. There are no signs of recurrent hernia formation. Assessment IMPRESSION: status post robotic assisted laparoscopic left inguinal hernia repair, healing well PLAN: If the patient notes any problems, he should contact me immediately. he may return to his regular activities as tolerated, with the exception of no lifting greater than 20 pounds for a full 8 weeks post-operatively. Will plan for RTW after a full 8 weeks from post-op date as patient's job requires lifting, with no restrictions. Letter provided to patient and letter and updated FMLA forms faxed per patient request. Diagnoses: (Z98.890, Z87.19) S/P hernia repair (primary encounter diagnosis) Return to Clinic: The patient is instructed to follow-up with me as needed. Patient verbalized understanding of all above and agreed with the plan. Lorenzo Degroot PA-C Referring Provider: SELF [200] Allergies As of Date: 04/24/2021 (No Known Allergies) Date Reviewed: 04/24/2021 Reviewed by: Delilah Henderson LPN - Fully Assessed Reason for Visit: Follow Up [171] Cmt: Left Inguinal Hernia repair Primary Visit Diagnosis:S/P hernia repair [Z98.890, Z87.19] Problem List As Of Date 04/24/2021 Noted Resolved Acute appendicitis with generalized peritonitis*06/24/2010 Other instructions from your clinician: -RTW 05/19/21 The following instructions are important for you related to your office visit today with the [facility] Sur[facility]. INSTRUCTIONS FOLLOWING YOUR RECENT HERNIA SURGERY Y (more content not included)... [facility] CNOVon 04-22-2021 CNOV Office Visit (UROLWS ) YUNIERLATRICIA Jose JR. ([id number]) 1955 M Date Time Provider Department 04/22/21 9:20 AM RAKAN ULLOA During your visit today, we recorded the following information about you: Rakan Ulloa PA-C 04/22/2021 10:55 AM Signed PATIENT INFO: Latricia Faye Jr. 65 year old ( ) REFERRING PROVIDER: Lorenzo Degroot PCP: Francisco Crawley DO April 22, 2021 HPI: Latricia Faye Jr. 65 year old male is here today for discussion of his history of urgency and urinary frequency. He has noticed that he is not unable to hold the urine once he has the urge to go its difficult wait. He does not drink water as a general rule and does drink a lot of coffee and the urine is very dark and smells strong CAFFEINE AND BLADDER IRRITANTS: Consuming certain foods and drinks will make your body produce more urine. Consuming irritants will bother your bladder and creat urgency and frequency. Cut down on the following irritants to help reduce your urinary symptoms: Caffeine, Artificial Sweeteners, Artificial Colorants, Alcohol TIMED VOIDING: The bladder should normally empty every 2-3 hours each day. Empty your badder this often, regardless of feeling the need to urinate. This will keep the bladder more empty and reduce your symptoms. Waiting too long until you have to urinate can result in leakage. NOCTURIA (URINATION AT NIGHT): Start to slow down fluid intake from 3:00 PM until dinner time. Try as much as possible to avoid fluid intake after dinner. Especially avoid bladder irritants in the evening: - alcohol, caffeine - artificial sweeteners, artificial colors / dyes Urinate before going to bed to empty the bladder. If you snore, let your doctor know: - snoring can indicate sleep apnea - sleep apnea is a major cause of urination at night If possible, lay down mid-day (1PM - 2PM) to help shed excess fluid. CONSTIPATION: Constipation will worsen bladder symptoms, sometimes quite severely. Please ensure you have a good bowel movement each day. Daily Miralax (polyethylene glycol) and water intake can help with this. (BLADDER) PATIENT INFORMATION: CAFFEINE AND BLADDER IRRITANTS: Consuming certain foods and drinks will make your body produce more urine. Consuming irritants will bother your bladder and creat urgency and frequency. Cut down on the following irritants to help reduce your urinary symptoms: Caffeine, Artificial Sweeteners, Artificial Colorants, Alcohol TIMED VOIDING: The bladder should normally empty every 2-3 hours each day. Empty your badder this often, regardless of feeling the need to urinate. This will keep the bladder more empty and reduce your symptoms. Waiting too long until you have to urinate can result in leakage. NOCTURIA (URINATION AT NIGHT): Start to slow down fluid intake from 3:00 PM until dinner time. Try as much as possible to avoid fluid intake after dinner. Especially avoid bladder irritants in the evening: - alcohol, caffeine - artificial sweeteners, artificial colors / dyes Urinate before going to bed to empty the bladder. If you snore, let your doctor know: - snoring can indicate sleep apnea - sleep apnea is a major cause of urination at night If possible, lay down mid-day (1PM - 2PM) to help shed excess fluid. CONSTIPATION: Constipation will worsen bladder symptoms, sometimes quite severely. Please ensure you have a good bowel movement each day. Daily Miralax (polyethylene glycol) and water intake can help with this. LUTS: Obstructive - weak stream: no, hesitancy: no, Intermittency: no, Double voiding no post-void dribbling: yes incomplete emptying: yes Irritative - NTF yes Urgency yes Frequency yes Dysuria no Incontinence no Gross Hematuria no Microscopic Hematuria ( 2 of 3 UA w/Micro showed 3-5 RBC's) no Other symptoms: ED - Denies LABS: No results found for: TESTOST No results found for: TESTFREE No results found for: PSA No results found for: HCT MEDICATIONS: No prescriptions on file. PAST MEDICAL HISTORY: PAST MEDICAL HISTORY Diagnosis Date - Appendicitis, acute 07/07/2010 - Inguinal hernia 02/2021 - Rotator cuff syndrome of shoulder and allied disorders PAST SURGICAL HISTORY: PAST SURGICAL HISTORY Procedure Laterality Date - APPENDECTOMY,RUPT APPENDX+ABSCESS 07/07/2010 - LAP REPAIR INTIAL INGUINAL HERNIA Left 03/21/2021 - TONSILLECTOMY HX FAMILY HISTORY: FAMILY HISTORY Problem Relation Age of Onset - Cancer Father - Diabetes Maternal Grandmother - Heart Maternal Grandfather - Stroke Maternal Grandfather SOCIAL HISTORY: Social Connections: ? ? Frequency of Communication with Friends and Family: ? ? Frequency of Social Gatherings with Friends and Family: ? ? Attends Jewish Services: ? ? Active Member of Clubs or Organizations: ? ? Attends Club or Org (more content not included)... Normal [facility] PSA, [employer] 04-22-2021 PSA, Diagnostic 2.55 ng/mL Normal 0.00-2.59 [facility] Comment on above: Result Comment: Florencio jose PSA test methodology used is the Electrochemiluminescence Immunoassay. Performed By: #### P SA ####[facility] [place], [place] [id number] [facility] 04-14-2021 CNPN Telephone (GENSWS) LATRICIA FAYE JR. ([id number]) 1955 M Date Time Provider Department 04/14/21 TITUS AGARWAL During your visit today, we recorded the following information about you: Nel Li RN 04/14/2021 4:30 PM Signed Type of form: FMLA and Short-term Disability Form received via walk in When form is completed, Fax form to [employer] [place] at [facility]. Forms completed, signed by provider and faxed as requested. Nel Li RN Allergies As of Date: 04/14/2021 (No Known Allergies) Date Reviewed: 04/08/2021 Reviewed by: Rosie Thompson RN - Fully Assessed Reason for Visit: FMLA Paperwork [4185] Problem List As Of Date 04/14/2021 Noted Resolved Acute appendicitis with generalized peritonitis*06/24/2010 Encounter Status:Closed by NEL LI on 04/14/21 [facility] [facility] CNOVon 04-08-2021 CNOV Office Visit (GENSWS ) LATRICIA FAYE JR. ([id number]) 1955 M Date Time Provider Department 04/08/21 9:00 AM LORENZO DEGROOT During your visit today, we recorded the following information about you: Temperature Pulse Blood pressure Weight 98.5 degrees 59/minute 138/86 92.1 kg Lorenzo Degroot PA-C 04/08/2021 9:10 AM Signed The following instructions are important for you related to your office visit today with the [facility] General Surgeons. INSTRUCTIONS FOLLOWING YOUR RECENT HERNIA SURGERY You should be returning to your regular diet, If you have having persistent issues with tolerating your diet, please contact our office It is not unusual to have incisional pain for the first 1-2 weeks following surgery. If this persists beyond 2 weeks, contact the office You should leave the Steri-Strips in place until they fall off. You may return to your regular activities. You may drive if you are no longer taking narcotic pain medication. Climbing stairs is fine. Walking in encouraged. Sitting up from bed may be uncomfortable. Sitting up using your lateral abdominal muscles (sitting up sideways) is usually more comfortable. You should perform no lifting greater than 20lbs for the next 6-7 weeks. Usually 8 weeks total from the date of surgery. It is not unusual to have loose stools following surgery. This is usually self limited and related to the antibiotics that were given during your surgical procedure. Fiber supplementation and yogurt with active cultures may help you return to regular bowel activity. If you note loose stools persisting for over 2 weeks, or significant cramping or loose bloody stools, contact the office immediately. Contact the office immediately if any of your incisions become increasingly tender, red or have drainage. Again, if you have any difficulties or concerns, contact our office immediately. If you note any additional difficulties, questions, or concerns, you should contact our office immediately @ [phone] and ask to be transferred to the General Surgery department. Lorenzo Degroot PA-C 04/08/2021 9:53 AM Signed FOLLOW UP VISIT - HERNIA NAME: Latricia Jose Yunier Dayana CLINIC NO.: [id number] DATE OF SERVICE: 04/08/2021 : 1955 REFERRING PHYSICIAN: Francisco Crawley DO Latricia is a patient I am following for a left inguinal hernia. Dr. Agarwal performed a robotic-assisted laparoscopic left inguinal hernia repair with mesh on 03/21/21. The patient currently notes no major complaints. his appetite has been good. he denies fever, chills or abdominal pain. he does note some mild incisional discomfort and some sharp/burning pains in the surrounding area with movement and when he is trying to sleep. he notes no bulges at the operative site. Patient notes that he already has issues with frequent urination and having to get up often at night to urinate. States this was worse right after surgery but is now getting back to his normal. He has never seen urology, and states he has not seen his PCP in almost 2 years. VITALS: Blood pressure 138/86, pulse (!) 59, temperature 36.9 ?C (98.5 ?F), temperature source Temporal Artery, weight 92.1 kg (203 lb), SpO2 97 %. General: patient is alert, cooperative, pleasant and in no acute distress On examination, the abdomen is benign. The incisions are healing well without signs of infection or inflammation. There are no signs of recurrent hernia formation. Assessment IMPRESSION: status post robotic-assisted laparoscopic left inguinal hernia repair with mesh PLAN: If the patient notes any problems, he should contact me immediately. he may return to his regular activities as tolerated, with the exception of no lifting greater than 20 pounds for the next 7 weeks. If patient feels the urge to cough or sneeze, they should brace against the repair site with their hands or a pillow. Recommend urology evaluation for frequent urination, as well as following up with PCP for routine health maintenance Diagnoses: (Z98.890, Z87.19) S/P hernia repair (primary encounter diagnosis) (R35.0) Frequent urination Return to Clinic: The patient is instructed to follow-up with me in 3 weeks for recheck prior to returning to work. Patient verbalized understanding of all above and agreed with the plan. Lorenzo Degroot PA-C Referring Provider: SELF [200] Allergies As of Date: 04/08/2021 (No Known Allergies) Date Reviewed: 04/08/2021 Reviewed by: Rosie Thompson RN - Fully Assessed Reason for Visit: Post Op [174] Cmt: hernia surgery Primary Visit Diagnosis:S/P hernia repair [Z98.890, Z87.19] Other Visit Diagnosis:Frequent urination [R35.0] Problem List As Of Date 04/08/2021 Noted Resolved Acute appendicitis with generalized peritonitis*06/24/2010 Other instructions from your clinician: The following instru (more content not included)... Normal [facility] CNOVon 03-28-2021 CNOV Office Visit (GENSWS ) YUNIER,LATRICIA Jose JR. ([id number]) 1955 M Date Time Provider Department 03/28/21 9:20 AM TITUS AGARWAL During your visit today, we recorded the following information about you: Temperature Pulse Blood pressure Weight 98.1 degrees 70/minute 126/78 88.7 kg Titus Agarwal III, MD 03/29/2021 11:47 AM Signed Subjective: Patient is status post a laparoscopic left inguinal hernia which was completed on 03/21/2021 was done robotically. Patient has a lot of little complaints of some discomfort in his umbilical area in his groin area he has been moving his bowels and moving without too much difficulty. He is urinating. Objective:Blood pressure 126/78, pulse 70, temperature 36.7 ?C (98.1 ?F), weight 88.7 kg (195 lb 9.6 oz), SpO2 99 %. Incisions are healing well no signs of cellulitis or infection has a little bit of a hematoma in his left groin area but he did have a large cord lipoma and a large hernia sac and I think he is experiencing exactly what I thought would happen at the time of his surgery Assessment: Aftercare Plan: Have him follow back up in a month. He may not be ready to go back to work until 6 weeks. Referring Provider: SELF [200] Allergies As of Date: 03/28/2021 (No Known Allergies) Date Reviewed: 02/24/2021 Reviewed by: Delilah Henderson LPN - Fully Assessed Reason for Visit: Post Op Follow Up [3947] Cmt: left inguinal hernia repair Primary Visit Diagnosis:Aftercare [Z51.89] Prescriptions as of 03/29/2021 - oxyCODONE-acetaminophen (PERCOCET) 5-325 mg tablet - meloxicam (MOBIC) 15 mg tablet Take 15 mg by mouth once daily. Problem List As Of Date 03/28/2021 Noted Resolved Acute appendicitis with generalized peritonitis*06/24/2010 Encounter Status:Closed by TITUS AGARWAL on 03/29/21 [facility] 03-21-2021 CNPN Telephone (GENSWS) [facility],LATRICIA Jose JR. ([id number]) 1955 M Date Time Provider Department 03/21/21 TITUS AGARWAL GENJANICE During your visit today, we recorded the following information about you: Leonor Cheatham Admin Sec 03/21/2021 4:32 PM Signed Pts sister called to schedule post op appt. That is scheduled. She wanted to let Dr. Agarwal also know that the pt was have some issues with burning sensation when he urinates. She assumed it was due to just having had a catheter in. Nel Li RN 03/21/2021 5:05 PM Signed Returned call to patient. Spoke with his sister, Mehnaz. Per Latricia, since returning home, he has been experiencing burning at the tip of his penis when he urinates. He states that he did not have this prior to surgery and he denies any urgency or frequency now or prior to surgery. Advised that per the operative note, the patient did have a urinary catheter in place during the procedure, so the discomfort he is feeling is probably related to the catheter being in place and it is not uncommon to have some irritation afterwards. He may increase his water intake to dilute his urine. Advised that if he is still having symptoms tomorrow or Wednesday, or if he develops any additional symptoms, he may be seen at Urgent Care. Advised that if they had any additional questions, please contact the office. Mehnaz voiced understanding. MLIA Fine III, MD 03/24/2021 10:09 AM Signed agree with note Allergies As of Date: 03/21/2021 (No Known Allergies) Date Reviewed: 02/24/2021 Reviewed by: Delilah Henderson LPN - Fully Assessed Reason for Visit: Patient Update [1234] Prescriptions as of 02/25/2022 - ibuprofen (MOTRIN) 200 mg tablet Take 200 mg by mouth every 6 hours as needed for pain. Problem List As Of Date 03/21/2021 Noted Resolved Acute appendicitis with generalized peritonitis*06/24/2010 Encounter Status:Closed by LEONOR CHEATHAM on 02/25/22 Normal [facility] Discharge Instructionon 02-28 Discharge Instruction [facility] Medical Records Department [address] [place] [address] Instructions for Home/Discharge Instructions 03/21/21 1145 MR#: [id number] Acct: [id number] [facility] Rep #: [id number] : 1955 65 From: Titus Agarwal MD PCP: Dr. Francisco Crawley MD Status:REG [facility] Discharge Instructions Procedure Hernia Diet Discharge Diet: Light diet - advance as tolerated Activity Discharge Activity: Return to Normal Activity, May Drive (when you are no longer taking narcotic pain medications.) and May Shower (with the bandage in place 1-2 days after surgery.) Lifting Restrictions: 20 pounds for 8 weeks. Additional Activity Instructions:: Climbing stairs is fine, walking is encouraged. Sitting in bed may be uncomfortable. Sitting up using your lateral muscles (sitting up sideways) is usually more comfortable. Do not drive, work heavy equipment of sign legal documents for 24 hours. If your hernia repair was an ingunial repair, you may have scrotal swelling, an ice pack and/or athletic support can provide more comfort. Pain medications may cause nausea, you should typically eat light foods as you take your pain medications. Pain medications may also cause constipation. If you have difficulty with this, discuss with your doctor. Dressing / Incision Call your doctor if your incision/area has: Continuous Slow Oozing, Sudden Increased Bleeding, Increased Pain/ Swelling, Increased Redness and Foul Smelling Discharge Call your doctor if you observe: Fever of 101 or Higher Suture Line Care: Avoid Pulling/Pushing and Avoid Pinching/Bending Additional Dressing/Incision Instructions:: Leave the operative bandage on for 2-3 days. When you remove the bandage, leave the steri-strips on place until your follow up appointment or they fall off. Follow Up Care Please Follow Up With: Lorenzo Degroot PA-C When: Call office to schedule an appointment to be seen in 7 days. Test Results: Test results from this visit will be discussed in further detail at your follow-up appointment, if applicable. Discharge Plan Admission Attending Provider: Titus Agarwal Primary Care Provider: Francisco Crawley Discharge Orders/Prescriptions Prescriptions: New oxycodone-acetaminophen [Percocet] 5-325 mg tablet 1 tab PO Q6H PRN (Reason: pain) 5 Days Qty: 20 RF: 0 Other Ambulatory Orders: 12 Lead EKG (Routine) Timeframe: [id number] Location: None Selected Ordered By: Dr. Bj Brown Referrals / Follow Up: Francisco Crawley MD [Primary Care Provider] - Disposition Disposition (needs filled in before D/C Order can be placed): Home, Self Care 03/21/21 1145 Titus Agarwal MD CC: Dr. Francisco Crawley MD Signed [facility] Operative Reporton Operative Report [facility] Medical Records Department [address] [place] [address] Operative Report 03/21/21 1116 MR#: [id number] Acct: [id number] Name: YUNIERLATRICIA Jose Rep #: [id number] : 1955 65 From: Titus Agarwal MD PCP: Dr. Francisco Crawley MD Status:[facility] Location: [facility] Problems Associated Problem List Diagnoses (1) Left inguinal hernia: Report of Operation Date of Procedure: 03/21/21 Pre-Operative Diagnosis: Left inguinal hernia Post-Operative Diagnosis: The same Surgery/Procedure Performed:: Robotic assisted laparoscopic left inguinal hernia repair with mesh Surgeon: Titus Agarwal activity therapist: Marc Luke Type of Anesthesia: General Anesthesiologist: Mitul Lamar Estimated Blood Loss (mL): < 25 cc Description of Procedure: Patient was brought into the operating room. Placed in supine position. Under excellent general endotracheal ovation a Mccormick catheter was placed abdomen was sterilely prepped and draped in usual fashion. Local was injected supraumbilically dissection was carried down. Fascia was grasped with a Shumway varies needle was placed inside the abdomen, the abdomen and insufflated the abdomen to 15 torr. I placed a #8 trocar through this defect it was flank by 2 other #8 trochars. Patient was placed in the headdown position robot was brought in. Robot was successfully docked I placed a prograsp in my left hand scissors in my right hand I scored the peritoneum on the left side dissecting down to we came to the pubic tubercle and dissected laterally immediately coming in direct contact with a direct inguinal hernia which I brought back into the operative field I dissected further laterally no indirect hernia was identified. Once I had the cord and vessel structures dissected free I placed a 10 x 15 cm progrip mesh into the wound laid it over the defect it covered it quite nicely. I then reperitonealized the area using a 3 OV lock suture covering the mesh completely. Right side look good without signs of herniation. Trochars were removed. Wounds were brought together with deep dermal stitches of 3-0 Vicryl and then interrupted 4-0 Monocryl. Steri-Strips were applied sterile dressings were applied and the patient tolerated the procedure well Grafts/Implants Used: Continue progrip mesh reference number LPG [id number], lot number [id number] Admit VTE Documentation VTE Present on Admission: No VTE Mechan Device Prophylaxis: SCD's VTE Pharm Prophylaxis ordered?: No Reason prophylaxis not ordered:: Treatment Not Indicated 03/23/21 0841 Cosigner Signature (if applicable): CC: Dr. Titus Agarwal MD; Dr. Francisco Crawley MD Signed [facility] 12 Lead EKGon 03-18-2021 12 Lead EKG [facility] Cardiovascular Services [address] [place] [address] 12 Lead EKG 03/18/21 1410 MR#: [id number] Acct: [id number] Name: LATRICIA FAYE Jr. Rep #: [id number] : 1955 65 From: Randy Wong MD Attending Dr: Dr. Titus Agarwal MD Status: WI E SDC Ordering Dr: Titus Agarwal MD Date: 03/18/21 Location: [facility] Sex: M C Admitted: Test Reason : PREOP Blood Pressure : / mmHG Vent. Rate : 050 BPM Atrial Rate : 050 BPM P-R Int : 164 ms QRS Dur : 082 ms QT Int : 478 ms P-R-T Axes : 017 -09 -08 degrees QTc Int : 435 ms Sinus bradycardia with sinus arrhythmia Nonspecific T wave abnormality Abnormal ECG Confirmed by MARVIN HELM, RANDY ([id number]), assistant editor LORENZO TRINIDAD ([id number]) on 03/19/2021 12:45:50 PM Referred By: Titus Agarwal Confirmed By:RANDY WONG MD 03/19/21 1245 Date Randy Wong MD CC: Dr. Titus Agarwal MD; Dr. Francisco Crawley MD Signed [facility] CBC-Complete Blood Cnt No Di ffon 03-18-2021 Erythrocyte distribution width (RBC) [Ratio] 12.9 % Normal 11.6-14.6 [facility] Comment on above: Performed By: #### L 100.0500 #### [facility] [address] [place], [address] Hematocrit (Bld) [Volume fraction] 39.5 % Low 40-54 [facility] Comment on above: Performed By: #### L 100.0500 #### [facility] [address] [facility] [place], [address] Hemoglobin (Bld) [Mass/Vol] 14.0 g/dL Normal 13.0-16.5 [facility] Comment on above: Performed By: #### L 100.0500 #### [facility] [address] [place], [address] MCH (RBC) [Entitic mass] 31.5 pg Normal 27.0-32.0 [facility] Comment on above: Performed By: #### L 100.0500 #### [facility] [address] [place], [address] MCHC (RBC) [Mass/Vol] 35.4 g/dL Normal 32-36 [facility] Comment on above: Performed By: #### L 100.0500 #### [facility] [address] [place], [address] MCV (RBC) [Entitic vol] 89.0 fL Normal 80-94 [facility] Comment on above: Performed By: #### L 100.0500 #### [facility] [address] [place], [address] Platelet mean volume (Bld) [Entitic vol] 10.6 fL Normal 6.2-12.0 [facility] Comment on above: Performed By: #### L 100.0500 #### [facility] [address] [place], [address] Platelets (Bld) [#/Vol] 201 10*3/uL Normal 150-450 [facility] Comment on above: Performed By: #### L 100.0500 #### [facility] [address] [place], [address] RBC (Bld) [#/Vol] 4.44 10*6/uL Low 4.6-6.2 [facility] Comment on above: Performed By: #### L 100.0500 #### [facility] [address] [place], [address] RDW SD 42.1 fl Normal 35.1-43.9 [facility] Comment on above: Performed By: #### L 100.0500 #### [facility] [address] [place], [address] WBC (Bld) [#/Vol] 7.1 10*3/uL Normal 4.4-11.0 [facility] Comment on above: Performed By: #### L 100.0500 #### [facility] [address] [place], [address] Encounters Encounter Date Encounter Type Care Provider Facility Start: 02-20-2022 End: 02-20-2022 Patient encounter procedure [facility] [place] Start: 03-21-2021 Telephone encounter Titus mendoza MD Work Phone: General Surgery Comment on above: Patient Update Procedures Date Procedure Procedure Detail Performing Clinician Start: 02-20-2022 X-ray of both feet Plan of Treatment Date Care Activity Detail Author Start: 04-22-2026 PROSTATE CANCER SCRE ENING DISCUSSION PROSTATE CANCER SCREENING DISCUSSION [facility] Start: 04-30-2022 Influenza vaccination INFLUENZA (Sea son Ended) [facility] Start: 11-10-2021 COVID-19 VACCINE (4 - Booster for Pfizer series) COVID-19 VACCINE (4 - Booster for Pfizer series) [facility] Start: 2021 ADVANCE DIRECTIVE DISCUSSION ADVANCE DIRECTIVE DISCUSSION [facility] Start: 2006 SHINGRIX VACCINE (1 of 2) SHINGRIX V ACCINE (1 of 2) [facility] Start: 2001 COLOGUARD (FIT-DNA) COLOGUARD (FIT-D NA) [facility] Start: 2001 Colonoscopy COLONOSCOPY [facility] Start: 2001 COLORECTAL CANCER SCREENING COLORECTAL CANCER SCREENING [facility] Start: [address] COLONOGRAPHY [facility] Start: 2001 DIABETES SCREEN DIABETES SCREEN [facility] Start: 2001 FECAL OCCULT BLOOD FECAL OCCULT BLOO D [facility] Start: 2001 SIGMOIDOSCOPY SIGMOIDOSCOPY [facility] Start: 1991 LIPID SCREEN LIPID SCREEN [facility] Start: 1975 Urine microalbumin profile DTAP,TDAP ,TD (1 - Tdap) [facility] Start: 1974 HEPATITIS C SCREENING HEPATITIS C SC REENING [facility] Start: 1974 HIV SCREENING HIV SCREENING [facility] Start: 1968 Adult depression scr eening assessment DEPRESSION SCREENING [facility] Start: 1962 PNEUMOCOCCAL: 65+ (1 - PCV) PNEUMOCOCCAL: 65+ (1 - PCV) [facility] Start: 1955 ABDOMINAL AORTIC ANE URYSM SCREENING ABDOMINAL AORTIC ANEURYSM SCREENING [facility] Immunizations Immunization Date Immunization Notes Care Provider Regina nelson 10-16-2020 tetanus toxoid, redu dannie diphtheria toxoid, and acellular pertussis vaccine, adsorbed [facility] Work Phone: Payers Date Payer Category Payer Unknown DENEEN MARGIE LEWISCarroll PPO [id number] 2020-Present [phone] [address] [place] [address] PPO [id number] Medicare [facility] [id number] Private Health Insurance [facility] [id number] Self-pay [facility] [id number] Unknown [facility] [id number] Unknown [facility] [id number] Unknown [facility] [id number] Social History Date Type Detail Facility Start: 07-17-2021 [facility] Work Phone: Start: 1955 Sex Assigned At Male W [facility] Work Phone[facility] Work Phone: Start: 02-24-2021 Alcohol intake Not Asked [facility] Start: 06-05-2010 Tobacco Comment QUIT 3 WEEKS AGO [facility] Start: 1955 Sex Assigned At Not on file C [facility] Start: 06-25-2021 End: 07-25-2021 Exposure to SARS-CoV-2 (event) Not sure [facility] Medical Equipment Procedure Code Equipment Code Equipment Origin al Text Equipment Identifier Dates MESH,PRO REALTY LOAN SPECIALIST [id number] FDA Start: 03-21-2021 Progress note 07-25-2021 Note Date & Type Note Facility 07-25-2021 Note HNO ID: [id number] Author: Rakan Ulloa PA-C Service: ? Author Type: Physician Chemistry Laboratory Technician Type: Progress Notes Filed: 07/25/2021 8:47 AM Note Text: PATIENT INFO: Latricia Faye Jr. 65 year old ( ) REFERRING PROVIDER: Lorenzo Degroot PCP: Francisco Crawley DO HPI: Latricia Faye Jr. 65 year old male is here today for 3 month follow up for his urgency and frequency concerns He feels he has improved some from the Hernia surgery, he has not made any of the changes we discussed and continues to not unable to hold the urine once he has the urge to go its difficult . And still does not drink water as a general rule and does drink a lot of coffee and the urine is very dark and smells strong LUTS: Obstructive - post-void dribbling: yes incomplete emptying: yes Irritative - NTF yes Urgency yes Frequency yes Other symptoms: ED - Denies LABS: No results found for: TESTOST No results found for: TESTFREE PSA (ng/mL) Date Value 04/22/2021 2.55 No results found for: HCT MEDICATIONS: ibuprofen (MOTRIN) 200 mg tablet Take 200 mg by mouth every 6 hours as needed for pain. PAST MEDICAL HISTORY: PAST MEDICAL HISTORY Diagnosis Date - Appendicitis, acute 07/07/2010 - Inguinal hernia 02/2021 Left Inguinal Hernia - Rotator cuff syndrome of shoulder and allied disorders PAST SURGICAL HISTORY: PAST SURGICAL HISTORY Procedure Laterality Date - APPENDECTOMY,RUPT APPENDX+ABSCESS 07/07/2010 - LAP REPAIR INTIAL INGUINAL HERNIA Left 03/21/2021 - TONSILLECTOMY HX FAMILY HISTORY: FAMILY HISTORY Problem Relation Age of Onset - Cancer Father - Diabetes Maternal Grandmother - Heart Maternal Grandfather - Stroke Maternal Grandfather SOCIAL HISTORY: Social Connections: Not on file REVIEW OF SYSTEMS: GENERAL: No fever, chills, weight loss, or fatigue. = PHYSICAL EXAMINATION: Blood pressure 124/84, pulse 68, temperature 36.9 ?C (98.5 ?F), weight 92.1 kg (203 lb), SpO2 99 %. GENERAL: WNL nutrition, no deformities, healthy appearing PROBLEM LIST REVIEW: LABS: Results for orders placed or performed in visit on 07/25/21 UA DIP, URINE (POC) Result Value Ref Range GLUCOSE UA (POCT) Negative Negative mg/dL BILIRUBIN UA (POCT) Negative Negative KETONE UA (POCT) Negative Negative mg/dL SPECIFIC GRAVITY UA (POCT) 1.025 1.005 - 1.030 HEMOGLOBIN/BLOOD UA (POCT) Negative Negative PH UA (POCT) 7.0 4.5 - 8.0 PROTEIN UA (POCT) Negative Negative mg/dL UROBILINOGEN UA (POCT) 0.2 Normal E.U./dL NITRITE UA (POCT) Negative Negative LEUKOCYTES UA (POCT) Negative Negative COLOR UA (POCT) Dark yellow CLARITY UA (POCT) Clear PROCEDURES: Bladder Scan: 0 ml IMAGING: IMPRESSION/PLAN: 1. OAB (overactive bladder) > Increase hydration .and reduce irrtants > Patient states not interested in hydration too concern about having an accident with urine > Follow up as needed VERO Jean-Baptiste, JONAH DEE [facility] Progress note 04-25-2021 Note Date & Type Note Facility 04-25-2021 Note HNO ID: [id number] Author: Lorenzo Degroot PA-C Service: ? Author Type: Physician Chemistry Laboratory Technician Type: Progress Notes Filed: 04/25/2021 9:53 AM Note Text: FOLLOW UP VISIT - HERNIA [facility] [id number] DATE OF SERVICE: 04/24/2021 : 1955 REFERRING PHYSICIAN: Francisco Crawley DO Latricia is a patient I am following with Dr. Agarwal for a left inguinal hernia. Dr. Agarwal performed a robotic-assisted laparoscopic left inguinal hernia repair with mesh on 03/21/21. The patient currently notes no major complaints. his appetite has been good. he denies fever, chills or abdominal pain. he does note some mild intermittent pain at his surgical site which is exacerbated with certain movements and sitting. he notes no bulges at the operative site. Patient presents for recheck and to discuss return to work. He notes he initially wanted to try to go back to work sooner with a lifting restriction, but has been told by his work there are no guarantees anyone else would be able to assist him with heavy lifting. VITALS: Blood pressure 127/78, pulse 76, temperature 37 ?C (98.6 ?F), height 174 cm (5' 8.5), weight 90.7 kg (200 lb), SpO2 96 %. General: patient is alert, cooperative, pleasant and in no acute distress On examination, the abdomen is benign. The incisions are healing well without signs of infection or inflammation. There are no signs of recurrent hernia formation. Assessment IMPRESSION: status post robotic assisted laparoscopic left inguinal hernia repair, healing well PLAN: If the patient notes any problems, he should contact me immediately. he may return to his regular activities as tolerated, with the exception of no lifting greater than 20 pounds for a full 8 weeks post-operatively. Will plan for RTW after a full 8 weeks from post-op date as patient's job requires lifting, with no restrictions. Letter provided to patient and letter and updated FMLA forms faxed per patient request. Diagnoses: (Z98.890, Z87.19) S/P hernia repair (primary encounter diagnosis) Return to Clinic: The patient is instructed to follow-up with me as needed. Patient verbalized understanding of all above and agreed with the plan. Lorenzo Degroot PA-C [facility] Progress note 04-22-2021 Note Date & Type Note Facility 04-22-2021 Note HNO ID: [id number] Author: Rakan Ulloa PA-C Service: ? Author Type: Physician Chemistry Laboratory Technician Type: Progress Notes Filed: 04/22/2021 10:55 AM Note Text: PATIENT INFO: Latricia Jose Yunier Robert. 65 year old ( ) REFERRING PROVIDER: Lorenzo Degroot PCP: Francisco Crawley, April 22, 2021 HPI: Latricia Faye Jr. 65 year old male is here today for discussion of his history of urgency and urinary frequency. He has noticed that he is not unable to hold the urine once he has the urge to go its difficult wait. He does not drink water as a general rule and does drink a lot of coffee and the urine is very dark and smells strong CAFFEINE AND BLADDER IRRITANTS: Consuming certain foods and drinks will make your body produce more urine. Consuming irritants will bother your bladder and creat urgency and frequency. Cut down on the following irritants to help reduce your urinary symptoms: Caffeine, Artificial Sweeteners, Artificial Colorants, Alcohol TIMED VOIDING: The bladder should normally empty every 2-3 hours each day. Empty your badder this often, regardless of feeling the need to urinate. This will keep the bladder more empty and reduce your symptoms. Waiting too long until you have to urinate can result in leakage. NOCTURIA (URINATION AT NIGHT): Start to slow down fluid intake from 3:00 PM until dinner time. Try as much as possible to avoid fluid intake after dinner. Especially avoid bladder irritants in the evening: - alcohol, caffeine - artificial sweeteners, artificial colors / dyes Urinate before going to bed to empty the bladder. If you snore, let your doctor know: - snoring can indicate sleep apnea - sleep apnea is a major cause of urination at night If possible, lay down mid-day (1PM - 2PM) to help shed excess fluid. CONSTIPATION: Constipation will worsen bladder symptoms, sometimes quite severely. Please ensure you have a good bowel movement each day. Daily Miralax (polyethylene glycol) and water intake can help with this. (BLADDER) PATIENT INFORMATION: CAFFEINE AND BLADDER IRRITANTS: Consuming certain foods and drinks will make your body produce more urine. Consuming irritants will bother your bladder and creat urgency and frequency. Cut down on the following irritants to help reduce your urinary symptoms: Caffeine, Artificial Sweeteners, Artificial Colorants, Alcohol TIMED VOIDING: The bladder should normally empty every 2-3 hours each day. Empty your badder this often, regardless of feeling the need to urinate. This will keep the bladder more empty and reduce your symptoms. Waiting too long until you have to urinate can result in leakage. NOCTURIA (URINATION AT NIGHT): Start to slow down fluid intake from 3:00 PM until dinner time. Try as much as possible to avoid fluid intake after dinner. Especially avoid bladder irritants in the evening: - alcohol, caffeine - artificial sweeteners, artificial colors / dyes Urinate before going to bed to empty the bladder. If you snore, let your doctor know: - snoring can indicate sleep apnea - sleep apnea is a major cause of urination at night If possible, lay down mid-day (1PM - 2PM) to help shed excess fluid. CONSTIPATION: Constipation will worsen bladder symptoms, sometimes quite severely. Please ensure you have a good bowel movement each day. Daily Miralax (polyethylene glycol) and water intake can help with this. LUTS: Obstructive - weak stream: no, hesitancy: no, Intermittency: no, Double voiding no post-void dribbling: yes incomplete emptying: yes Irritative - NTF yes Urgency yes Frequency yes Dysuria no Incontinence no Gross Hematuria no Microscopic Hematuria ( 2 of 3 UA w/Micro showed 3-5 RBC's) no Other symptoms: ED - Denies LABS: No results found for: TESTOST No results found for: TESTFREE No results found for: PSA No results found for: HCT MEDICATIONS: No prescriptions on file. PAST MEDICAL HISTORY: PAST MEDICAL HISTORY Diagnosis Date - Appendicitis, acute 07/07/2010 - Inguinal hernia 02/2021 - Rotator cuff syndrome of shoulder and allied disorders PAST SURGICAL HISTORY: PAST SURGICAL HISTORY Procedure Laterality Date - APPENDECTOMY,RUPT APPENDX+ABSCESS 07/07/2010 - LAP REPAIR INTIAL INGUINAL HERNIA Left 03/21/2021 - TONSILLECTOMY HX FAMILY HISTORY: FAMILY HISTORY Problem Relation Age of Onset - Cancer Father - Diabetes Maternal Grandmother - Heart Maternal Grandfather - Stroke Maternal Grandfather SOCIAL HISTORY: Social Connections: ? ? Frequency of Communication with Friends and Family: ? ? Frequency of Social Gatherings with Friends and Family: ? ? Attends Jewish Services: ? ? Active Member of Clubs or Organizations: ? ? Attends Club or Organization Meetings: ? ? Marital Status: REVIEW OF SYSTEMS: GENERAL: No fever, chills, weight loss, or fatigue. ENMT: Negative CARDIOVASCULAR:NO CHEST PAIN, PALPITATIONS, A (more content not included)... [facility] Progress note 04-08-2021 Note Date & Type Note Facility 04-08-2021 Note HNO ID: [id number] Author: Lorenzo Degroot PA-C Service: ? Author Type: Physician Chemistry Laboratory Technician Type: Progress Notes Filed: 04/08/2021 9:53 AM Note Text: FOLLOW UP VISIT - HERNIA NAME: Latricia Faye Jr. CLINIC NO.: [id number] DATE OF SERVICE: 04/08/2021 : 1955 REFERRING PHYSICIAN: Francisco Crawley DO Latricia is a patient I am following for a left inguinal hernia. Dr. Agarwal performed a robotic-assisted laparoscopic left inguinal hernia repair with mesh on 03/21/21. The patient currently notes no major complaints. his appetite has been good. he denies fever, chills or abdominal pain. he does note some mild incisional discomfort and some sharp/burning pains in the surrounding area with movement and when he is trying to sleep. he notes no bulges at the operative site. Patient notes that he already has issues with frequent urination and having to get up often at night to urinate. States this was worse right after surgery but is now getting back to his normal. He has never seen urology, and states he has not seen his PCP in almost 2 years. VITALS: Blood pressure 138/86, pulse (!) 59, temperature 36.9 ?C (98.5 ?F), temperature source Temporal Artery, weight 92.1 kg (203 lb), SpO2 97 %. General: patient is alert, cooperative, pleasant and in no acute distress On examination, the abdomen is benign. The incisions are healing well without signs of infection or inflammation. There are no signs of recurrent hernia formation. Assessment IMPRESSION: status post robotic-assisted laparoscopic left inguinal hernia repair with mesh PLAN: If the patient notes any problems, he should contact me immediately. he may return to his regular activities as tolerated, with the exception of no lifting greater than 20 pounds for the next 7 weeks. If patient feels the urge to cough or sneeze, they should brace against the repair site with their hands or a pillow. Recommend urology evaluation for frequent urination, as well as following up with PCP for routine health maintenance Diagnoses: (Z98.890, Z87.19) S/P hernia repair (primary encounter diagnosis) (R35.0) Frequent urination Return to Clinic: The patient is instructed to follow-up with me in 3 weeks for recheck prior to returning to work. Patient verbalized understanding of all above and agreed with the plan. Lorenzo Degroot PA-C [facility] Progress note 03-29-2021 Note Date & Type Note Facility 03-29-2021 Note HNO ID: [id number] Author: Titus Agarwal MD Service: ? Author Type: Physician Type: Progress Notes Filed: 03/29/2021 11:47 AM Note Text: Subjective: Patient is status post a laparoscopic left inguinal hernia which was completed on 03/21/2021 was done robotically. Patient has a lot of little complaints of some discomfort in his umbilical area in his groin area he has been moving his bowels and moving without too much difficulty. He is urinating. Objective:Blood pressure 126/78, pulse 70, temperature 36.7 ?C (98.1 ?F), weight 88.7 kg (195 lb 9.6 oz), SpO2 99 %. Incisions are healing well no signs of cellulitis or infection has a little bit of a hematoma in his left groin area but he did have a large cord lipoma and a large hernia sac and I think he is experiencing exactly what I thought would happen at the time of his surgery Assessment: Aftercare Plan: Have him follow back up in a month. He may not be ready to go back to work until 6 weeks. [facility] Note 03-24-2021 Telephone Encounter - Titus Agarwal MD - 03/24/2021 10:09 AM EDTTelephone Encounter - Nel Li RN - 03/21/2021 4:58 PM EDT Note Date & Type Note Facility 03-24-2021 Miscellaneous Notes agree with note Returned call to patient. Spoke with his sister, Mehnaz. Per Latricia, since returning home, he has been experiencing burning at the tip of his penis when he urinates. He states that he did not have this prior to surgery and he denies any urgency or frequency now or prior to surgery. Advised that per the operative note, the patient did have a urinary catheter in place during the procedure, so the discomfort he is feeling is probably related to the catheter being in place and it is not uncommon to have some irritation afterwards. He may increase his water intake to dilute his urine. Advised that if he is still having symptoms tomorrow or Wednesday, or if he develops any additional symptoms, he may be seen at Urgent Care. Advised that if they had any additional questions, please contact the office. Mehnaz voiced understanding. Nel Li RN Pts sister called to schedule post op appt. That is scheduled. She wanted to let Dr. Agarwal also know that the pt was have some issues with burning sensation when he urinates. She assumed it was due to just having had a catheter in. documented in this encounter [facility] Clinical Note 03-21-2021 Note Date & Type Note Facility 03-21-2021 Note [facility] Medical Records Department [address] [place] [address] History Physical Exam 03/21/21 0904 MR#: [id number] Acct: [id number] Name: LATRICIA FAYE Jr. Rep #: [id number] : 1955 65 From: Titus Agarwal MD PCP: Dr. Francisco Crawley MD Status:[facility] Location: [place] [id number] History and Physical Date of Admission: 03/21/21 HISTORY AND PHYSICAL ??? Latricia Castanorebeca Mccrary 1955 ? REFERRING PHYSICIAN: Mitul Sparks MD ??? CHIEF COMPLAINT: Consult (Left Inguinal Hernia) ??? HPI: Latricia is a 65 year old male with a complaint of a bulge and discomfort in his left inguinal region. The patient notes discomfort in this area with lifting and straining. The symptoms have increased, over the past few months. ??? The patient notes no symptoms of bowel obstruction and denies nausea or vomiting. The patient was seen by his primary care physician who felt the patient has a hernia. Latricia was referred for evaluation and treatment. ??? The patient is being seen by me today at the request of Dr. Sparks for my opinion and advice regarding Left inguinal hernia (primary encounter diagnosis). ? PAST MEDICAL HISTORY PAST MEDICAL HISTORY Diagnosis Date ??? Appendicitis, acute 07/07/2010 ??? Rotator cuff syndrome of shoulder and allied disorders ? PAST SURGICAL HISTORY PAST SURGICAL HISTORY Procedure Laterality Date ??? APPENDECTOMY,RUPT APPENDX+ABSCESS ??? 07/07/2010 ??? TONSILLECTOMY HX ? CURRENT MEDICATIONS Current Outpatient Medications Medication Sig ??? meloxicam (MOBIC) 15 mg tablet Take 15 mg by mouth once daily. ??? No current facility-administered medications for this visit. ? ALLERGIES: Patient has no known allergies. ??? PERSONAL HISTORY: SOCIAL HISTORY Social History ??? Tobacco Use ??? Smoking status: Former Smoker ??? Smokeless tobacco: Never Used ??? Tobacco comment: QUIT 3 WEEKS AGO Substance Use Topics ??? Alcohol use: Not on file ??? Drug use: Not on file ??? FAMILY HISTORY: FAMILY HISTORY FAMILY HISTORY Problem Relation Age of Onset ??? Cancer Father ? Diabetes Maternal Grandmother ? Heart Maternal Grandfather ? Stroke Maternal Grandfather ? REVIEW OF SYMPTOMS: The review of systems data was entered by the nurse and reviewed by me ??? Nursing Notes: Delilah Henderson LPN 02/24/2021 4:09 PM Signed REVIEW OF SYSTEMS: General: The patient NOTES fatigue, denies weight loss, denies weight gain, denies feeling hot, and denies feelings of cold. Eyes: The patient denies glaucoma, denies eye injury/surgery, wears glasses or contacts. Ear/Nose/Throat: The patient denies allergies, denies hayfever, denies ear infections, and denies bloody noses. Cardiovascular: The patient denies chest pain, denies heart disease, denies high blood pressure,denies cardiac stent, denies prior heart attack, denies irregular heart beat, denies high cholesterol, denies poor circulation, denies heart failure, other cardiac issues, denies claudication, denies cold feet, denies peripheral arterial stent. Respiratory: The patient denies tuberculosis, denies pneumonia, denies frequent cough, denies pulmonary embolism, denies shortness of breath, and denies coughing up blood. Gastrointestinal: The patient denies difficulty swallowing, denies acid reflux, denies ulcers, denies vomiting, denies jaundice/hepatitis, denies gallbladder problems, denies black or tarry stools, NOTES hemorrhoids, denies bleeding from rectum, denies diverticulitis, denies constipation, denies diarrhea, denies loss of stool control, and NOTES hernias. Kidney/Bladder: The patient denies kidney stones, denies urine infections, and denies bloody urine. Skin: The patient denies a history of skin cancer, denies bleeding/changing moles, and denies a history of skin rash. Neurologic: The patient denies a history of epilepsy/convulsions, denies headaches, denies head/spinal injuries, and denies stroke/TIA. Psychiatric: The patient denies psychiatric medications, NOTES depression, and denies voices, denies substance abuse. Endocrine: The patient denies thyroid disorders, denies diabetes, and denies hormonal problems. Hematologic: The patient denies a history of bruising, denies bleeding, and denies anemia, denies blood clots. Infections: The patient NOTES a history of measles and mumps, denies rheumatic fever, and denies sexually transmitted diseases. Musculoskeletal: The patient NOTES back pain/injury, NOTES back problems, denies sciatica, NOTES knee/foot trouble, denies arthritis, or denies gout. ? When was patient's last Mammogram screening? N/A ??? Last Colonoscopy: None ??? Delilah Henderson LPN ??? PHYSICAL EXAMINATION: ??? General: The patient is 65 year old male, well nourished, well hydrate (more content not included)... [facility] Progress note 02-27-2021 Note Date & Type Note Facility 02-27-2021 Note HNO ID: [id number] Author: Titus Agarwal MD Service: ? Author Type: Physician Type: Progress Notes Filed: 02/27/2021 2:02 PM Note Text: HISTORY AND PHYSICAL Latricia Faye Jr. 1955 REFERRING PHYSICIAN: Mitul Sparks MD CHIEF COMPLAINT: Consult (Left Inguinal Hernia) HPI: Latricia is a 65 year old male with a complaint of a bulge and discomfort in his left inguinal region. The patient notes discomfort in this area with lifting and straining. The symptoms have increased, over the past few months. The patient notes no symptoms of bowel obstruction and denies nausea or vomiting. The patient was seen by his primary care physician who felt the patient has a hernia. Latricia was referred for evaluation and treatment. The patient is being seen by me today at the request of Dr. Sparks for my opinion and advice regarding Left inguinal hernia (primary encounter diagnosis). PAST MEDICAL HISTORY Diagnosis Date - Appendicitis, acute 07/07/2010 - Rotator cuff syndrome of shoulder and allied disorders PAST SURGICAL HISTORY Procedure Laterality Date - APPENDECTOMY,RUPT APPENDX+ABSCESS 07/07/2010 - TONSILLECTOMY HX Current Outpatient Medications Medication Sig - meloxicam (MOBIC) 15 mg tablet Take 15 mg by mouth once daily. No current facility-administered medications for this visit. ALLERGIES: Patient has no known allergies. PERSONAL HISTORY: Social History Tobacco Use - Smoking status: Former Smoker - Smokeless tobacco: Never Used - Tobacco comment: QUIT 3 WEEKS AGO Substance Use Topics - Alcohol use: Not on file - Drug use: Not on file FAMILY HISTORY: FAMILY HISTORY Problem Relation Age of Onset - Cancer Father - Diabetes Maternal Grandmother - Heart Maternal Grandfather - Stroke Maternal Grandfather REVIEW OF SYMPTOMS: The review of systems data was entered by the nurse and reviewed by me Nursing Notes: Delilah Henderson LPN 02/24/2021 4:09 PM Signed REVIEW OF SYSTEMS: General: The patient NOTES fatigue, denies weight loss, denies weight gain, denies feeling hot, and denies feelings of cold. Eyes: The patient denies glaucoma, denies eye injury/surgery, wears glasses or contacts. Ear/Nose/Throat: The patient denies allergies, denies hayfever, denies ear infections, and denies bloody noses. Cardiovascular: The patient denies chest pain, denies heart disease, denies high blood pressure,denies cardiac stent, denies prior heart attack, denies irregular heart beat, denies high cholesterol, denies poor circulation, denies heart failure, other cardiac issues, denies claudication, denies cold feet, denies peripheral arterial stent. Respiratory: The patient denies tuberculosis, denies pneumonia, denies frequent cough, denies pulmonary embolism, denies shortness of breath, and denies coughing up blood. Gastrointestinal: The patient denies difficulty swallowing, denies acid reflux, denies ulcers, denies vomiting, denies jaundice/hepatitis, denies gallbladder problems, denies black or tarry stools, NOTES hemorrhoids, denies bleeding from rectum, denies diverticulitis, denies constipation, denies diarrhea, denies loss of stool control, and NOTES hernias. Kidney/Bladder: The patient denies kidney stones, denies urine infections, and denies bloody urine. Skin: The patient denies a history of skin cancer, denies bleeding/changing moles, and denies a history of skin rash. Neurologic: The patient denies a history of epilepsy/convulsions, denies headaches, denies head/spinal injuries, and denies stroke/TIA. Psychiatric: The patient denies psychiatric medications, NOTES depression, and denies voices, denies substance abuse. Endocrine: The patient denies thyroid disorders, denies diabetes, and denies hormonal problems. Hematologic: The patient denies a history of bruising, denies bleeding, and denies anemia, denies blood clots. Infections: The patient NOTES a history of measles and mumps, denies rheumatic fever, and denies sexually transmitted diseases. Musculoskeletal: The patient NOTES back pain/injury, NOTES back problems, denies sciatica, NOTES knee/foot trouble, denies arthritis, or denies gout. When was patient's last Mammogram screening? N/A Last Colonoscopy: None Delilah [facility] PHYSICAL EXAMINATION: General: The patient is 65 year old male, well nourished, well hydrated in no acute distress. The patient is oriented to time, place, and person. VITALS: Blood pressure 132/78, pulse 89, temperature 36.7 ?C (98 ?F), height 172.7 cm (5' 8), weight 88 kg (194 lb), SpO2 96 %. Body mass index is 29.5 kg/m?. HEENT: Normal cephalic, ataumatic, pupils are equally round, sclera are anicteric, mucous membranes are moist, oropharynx is clear. Neck has no masses, asymmetry or lymphadenopathy. Thyroid is unremarkable. Respiratory: Clear to auscultation and percussion. Normal respiratory excursion and pattern. Cardiac: Examination is regular r (more content not included)... [facility] Evaluation note Note Date & Type Note Facility Evaluation note No assessment information availa [facility] Work Phone: Advance Directives No Advanced Directives Records Found Advance Directive Response Recorded Date/ Time Living Will No March 14, 2021 3:38pm Power of Pediatric Medical Assistant No March 14 3:38pm Summary Purpose Family History No Family History Records FoundNo Family History Records Found Additional Source Comments Goals (unrecognized section and content) Goals may be documented in a n alternate section Source Comments (unrecognize d section and content) In the event this informatio n is protected by the Federal Confidentiality of Alcohol and Drug Abuse Patient Records regulations: The Federal rules restrict any use of the information to criminally investigate or prosecute any alcohol or drug abuse patient.[facility] Reason for Visit (unrecogniz ed section and content) Reason Comments Patient Update Care Teams (unrecognized sec tion and content) Breast Surgeon Relationship Specialty Start Date End Date Francisco Crawley DO PCP - General Family Practice 02/24/21 (unrecognized sect ion and content) No Status Records FoundNo Status Records Found INFORMATION SOURCE (unrecogn ized section and content) DATE CREATED AUTHOR 02/26/2022 [facility] DATE CREATED AUTHOR AUTHOR'S JIMMY SANTOS 02/27/2022 [facility] FOR RECORDS PERTAINING TO PATIENTS WHO ARE OR HAVE BEEN ENROLLED IN A CHEMICAL DEPENDENCY/SUBSTANCEABUSE PROGRAM, SOME INFORMATION MAY BE OMITTED. This clinical summary was aggregated from multiple sources. Caution should be exercised in using it in the provision of clinical care. This summary normalizes information from multiple sources, and as a consequence, information in this document may materially change the coding, format and clinical context of patient data. In addition, data may be omitted in some cases. CLINICAL DECISIONS SHOULD BE BASED ON THE PRIMARY CLINICAL RECORDS. [facility]. provides no warranty or guarantee of the accuracy or completeness of information in this document.
--- NOTE | 2025-04-01 12:20 | CM.ED ---
Social Work Date of referral: 04/01/25 Reason for referral: No Advanced Care Directives (ACD's) on file Referred by: Social Work Identification Patient provided consent for social work visit. Rn Circulating requested patient bring in a copy of his ACD's which he stated he will do. Leonor Dos Santos, ARRESTING GEAR OPERATOR, [employer]
[2025-04-01 12:42] VITALS: BP 142/88; PULSE 77; RESP 16; TEMP 36.3; O2SAT 100
== END 2025-04-01 12:43 | disposition home or self-care (01) ==
LOC: ED 12:17
PROVIDERS: Emergency Provider Emergency Medicine; PCP Family Medicine; Visit Provider Emergency Medicine
DX: S93.402A Sprain of unspecified ligament of left ankle, initial encounter (principal); F41.9 Anxiety disorder, unspecified; F32.A Depression, unspecified; Y93.89 Activity, other specified; Y92.096 Garden or yard of other non-institutional residence as the place of occurrence of the external cause; Z90.49 Acquired absence of other specified parts of digestive tract; W10.2XXA Fall (on)(from) incline, initial encounter; M25.511 Pain in right shoulder
CPT/HCPCS: 73030; 73610; 99283